=== PATIENT | female | born 1995 | race Caucasian/White ===

== ENCOUNTER 2023-03-03 00:47 | Emergency (ER) | payer BC ==
[~2023-03-03] VITALS: Ht 160 cm; Wt 127.0 kg
[2023-03-03] MEDS ORDERED: BENZ100A PO (02:57)
[2023-03-03 03:12] VITALS: BP 134/97
== END 2023-03-03 03:10 | disposition home or self-care (01) ==
LOC: ER 00:47
DX: J95.830 Postprocedural hemorrhage of a respiratory system organ or structure following a respiratory system procedure (principal)
CPT/HCPCS: 94640; 94664; A9270